=== PATIENT | female | born 2000 | race Native Hawaiian/Other Pacific Islander ===

== ENCOUNTER 2018-10-21 18:34 | Emergency (ER) | payer MEDICAID ==
[2018-10-21 18:51] VITALS: BP 118/74
--- NOTE | 2018-10-21 18:52 | Emergency Department Report ---
Blank Doc - Documentation Documentation: 17 y o female presents with sob and chest pain constant that began last night PMH: none
[2018-10-21] MEDS ORDERED: IBUPROFEN PO ONE (19:48)
[2018-10-21 19:54] LABS: Basophils % (Auto) 0.6 % (0.0-1.8); Eosinophils # (Auto) 0.3 K/mm3 (0.0-0.4); Eosinophils % (Auto) 3.9 % (0.0-4.3); Hemoglobin 12.6 gm/dl (10.1-14.3); Lymphocytes # (Auto) 2.3 K/mm3 (1.2-5.4); Lymphocytes % (Auto) 32.2 % (13.4-35.0); Mean Corpuscular HGB Conc 35 % (30-34); Mean Corpuscular Volume 94 fl (79-97); Monocytes # (Auto) 0.6 K/mm3 (0.0-0.8); Platelet Count 285 K/mm3 (140-440); Red Blood Count 3.83 M/mm3 (3.65-5.03); Red Cell Distribution Width 12.2 % (13.2-15.2)
[2018-10-21 20:07] LABS: BUN/Creatinine Ratio 20; Blood Urea Nitrogen 12 mg/dL (7-17); Calcium 8.9 mg/dL (8.4-10.2); Hemolysis Index 6
--- NOTE | 2018-10-21 21:19 | Emergency Department Report ---
ED Chest Pain HPI - General Chief Complaint: Chest Pain Stated Complaint: CHEST/BACK PAIN Time Seen by Provider: 10/21/18 18:49 Source: patient Mode of arrival: Ambulatory Limitations: No Limitations - History of Present Illness Initial Comments: Patient 17-year-old female who presents with chest pain shortness of breath onset last night pain assessment by movement palpation and deep inspiration pain is relieved by rest pain described as aching sharp there is no radiation there is no nausea vomiting no diaphoresis no dizziness no lightheade dness patient denies history of asthma or bronchitis there is no productive cough no wheezing, pt is deaf reads lips, uses adult sister for manager sales at bedside MD Complaint: chest pain Onset/Timin -: days(s) Pain Location: left chest (left lateral ) Pain Radiation: none Severity: moderate Severity scale (0 -10): 6 Consistency: intermittent Improves With: rest Worsens With: inspiration, palpation, movement re: denies: nausea, vomting, diaphoresis, dyspnea, sense of impending doom Other Symptoms: denies: cough, fever, syncope, rash, acid taste in mouth, leg swelling, palpitations, burping Treatments Prior to Arrival: none Aspirin use within the Past 7 Days: (0) No - Related Data On Oral Contraceptives: No Previous Rx's Medication Instructions Recorded Last Taken Type ALBUTEROL Inhaler (OR & NICU) 2 puff IH QID PRN #1 inhalation 10/21/18 Unknown Rx [ProAir HFA Inhaler] Ibuprofen [Motrin 800 MG tab] 800 mg PO Q8HR PRN #30 tablet 10/21/18 Unknown Rx Allergies Allergy/AdvReac Type Severity Reaction Status Date / Time Penicillins Allergy Hives Verified 10/21/18 18:39 Heart Score - HEART Score History: Slightly suspicious EKG: Normal Age: < 45 Risk factors: No known risk factors Troponin: < normal limit HEART Score: 0 ED Review of Systems ROS: Stated complaint: CHEST/BACK PAIN Other details as noted in HPI Constitutional: denies: chills, fever, malaise Eyes: denies: eye pain, eye discharge, vision change ENT: denies: ear pain, throat pain, congestion Respiratory: denies: cough, shortness of breath, wheezing Cardiovascular: chest pain. denies: palpitations, dyspnea on exertion, orthopnea, edema, syncope, paroxysmal nocturnal dyspnea Endocrine: no symptoms reported Gastrointestinal: denies: abdominal pain, nausea, vomiting, diarrhea, constipation, melena, hematochezia Genitourinary: denies: urgency, dysuria, frequency, hematuria, discharge Musculoskeletal: denies: back pain, joint swelling, arthralgia, myalgia Skin: denies: rash, lesions Neurological: as per HPI Psychiatric: denies: anxiety, depression Hematological/Lymphatic: denies: easy bleeding, easy bruising ED Past Medical Hx - Past Medical History Previous Medical History?: No - Surgical History Past Surgical History?: No - Social History Smoking Status: Never Smoker Substance Use Type: None - Medications Home Medications: Home Medications Medication Instructions Recorded Confirmed Last Taken Type ALBUTEROL Inhaler (OR & NICU) 2 puff IH QID PRN #1 inhalation 10/21/18 Unknown Rx [ProAir HFA Inhaler] Ibuprofen [Motrin 800 MG tab] 800 mg PO Q8HR PRN #30 tablet 10/21/18 Unknown Rx ED Physical Exam - General Limitations: No Limitations General appearance: alert, in no apparent distress - Head Head exam: Present: atraumatic, normocephalic - Eye Eye exam: Present: normal appearance, PERRL, EOMI Pupils: Present: normal accommodation - ENT ENT exam: Present: mucous membranes moist. Absent: normal orophraynx, TM's normal bilaterally, normal external ear exam - Neck Neck exam: Present: normal inspection, full ROM. Absent: tenderness, meningismus, lymphadenopathy, thyromegaly - Respiratory Respiratory exam: Present: normal lung sounds bilaterally, chest wall tenderness (left lateral chest wall pain). Absent: respiratory distress, wheezes, rales, rhonchi, stridor, accessory muscle use, decreased breath sounds, prolonged e xpiratory - Cardiovascular Cardiovascular Exam: Present: regular rate, normal rhythm, normal heart sounds - GI/Abdominal GI/Abdominal exam: Present: soft, normal bowel sounds. Absent: distended, tenderness, guarding, rebound, rigid, bruit, hernia - Rectal Rectal exam: Present: deferred - Extremities Exam Extremities exam: Present: normal inspection, full ROM, normal capillary refill. Absent: tenderness, pedal edema, joint swelling, calf tenderness - Back Exam Back exam: Present: normal inspection, full ROM, tenderness. Absent: CVA tenderness (R), CVA tenderness (L), muscle spasm, paraspinal tenderness, rash noted - Neurological Exam Neurological exam: Present: alert, oriented X3, CN II-XII intact, normal gait, motor sensory deficit, reflexes normal - Psychiatric Psychiatric exam: Present: normal affect, normal mood - Skin Skin exam: Present: warm, dry, intact, normal color. Absent: rash ED Course Vital Signs 10/21/18 10/21/18 18:49 20:24 Temperature 98.2 F Pulse Rate 76 Respiratory 16 16 Rate Blood Pressure 118/74 O2 Sat by Pulse 98 Oximetry JERMAIN score - Jermain Score Age > 65: (0) No Aspirin use within the Past 7 Days: (0) No 3 or more CAD Risk Factors: (0) No 2 or more Angina events in past 24 hrs: (0) No Known CAD with more than 50% Stenosis: (0) No Elevated Cardiac Markers: (0) No ST Deviation Greater than 0.5mm: (0) No JERMAIN Score: 0 ED Medical Decision Making - Lab Data Result diagrams: 10/21/18 19:36 10/21/18 19:36 Labs 10/21/18 10/21/18 10/21/18 19:36 19:36 19:36 WBC 7.2 RBC 3.83 Hgb 12.6 Hct 36.0 MCV 94 MCH 33 H MCHC 35 H RDW 12.2 L Plt Count 285 Lymph % (Auto) 32.2 [place] % (Auto) 8.0 H Eos % (Auto) 3.9 Baso % (Auto) 0.6 Lymph # 2.3 [place] # 0.6 Eos # 0.3 Baso # 0.0 Seg Neutrophils % 55.3 Seg Neutrophils # 4.0 Sodium 136 L Potassium 3.7 Chloride 102.5 Carbon Dioxide 22 Anion Gap 15 BUN 12 Creatinine 0.6 L Estimated GFR > 60 BUN/Creatinine Ratio 20 Glucose 96 Calcium 8.9 Troponin T < 0.010 HCG, Qual Negative - EKG Data When compared to previous EKG there are: other (no previous ekg performed ) Interpretation: normal EKG (ekg interp by ed attending NSR no ST Elevated [place] ) - Radiology Data Radiology results: report reviewed, image reviewed Patient: JUICE FARMER MR#: [id number] : 2000 Acct:[id number] Age/Sex: 17 / F ADM Date: 10/21/18 Loc: ED Attending Dr: Ordering Physician: ABI MENENDEZ Date of Service: 10/21/18 Procedure(s): XR chest routine 2V Accession Number(s): [id number] cc: ABI MENENDEZ Fluoro Time In Minutes: PROCEDURE: XR CHEST ROUTINE 2V TECHNIQUE: PA and lateral chest radiographs were obtained. HISTORY: Chest Pain COMPARISONS: None. FINDINGS: Heart: Normal. Mediastinum/Vessels: Normal. Lungs/Pleural space: Normal. Bony thorax: No acute osseous abnormality. IMPRESSION: Normal examination. This document is electronically signed by Greg Farley MD., October 21 2018 10 :14:24 PM ET Transcribed By: [facility] Dictated By: JAKE FARLEY MD Electronically Authenticated By: JAKE FARLEY MD Signed Date/Time: 10/21/182215 DD/ 33 TD/TT: 10/21/182034 - Medical Decision Making cxr nromal, plan ibuprofen prn, alubterol,follow up with pcp in 2 days return to ed if symptoms worsen, pt verbalized agreement and understanding of same. Critical care attestation.: If time is entered above; I have spent that time in minutes in the direct care of this critically ill patient, excluding procedure time. ED Disposition Clinical Impression: Chest wall pain Disposition: -01 TO HOME OR SELFCARE Is pt being admited?: No Does the pt Need Aspirin: No Condition: Stable Instructions: Costochondritis (ED) Prescriptions: Ibuprofen [Motrin 800 MG tab] 800 mg PO Q8HR PRN #30 tablet PRN Reason: pain ALBUTEROL Inhaler (OR & NICU) [ProAir HFA Inhaler] 2 puff IH QID PRN #1 inhalation PRN Reason: Shortness Of Breath Referrals: [facility] [Provider Group] - 3-5 Days Forms: Work/School Release Form(ED) Time of Disposition: 22:48
--- NOTE | 2018-10-21 22:16 | XRay Report ---
PROCEDURE: XR CHEST ROUTINE 2V TECHNIQUE: PA and lateral chest radiographs were obtained. HISTORY: Chest Pain COMPARISONS: None. FINDINGS: Heart: Normal. Mediastinum/Vessels: Normal. Lungs/Pleural space: Normal. Bony thorax: No acute osseous abnormality. IMPRESSION: Normal examination. This document is electronically signed by Greg English MD., October 21 2018 10:14:24 PM ET
== END 2018-10-21 22:52 | disposition home or self-care (01) ==
LOC: ED 18:34
DX: R07.89 Other chest pain (principal); Z88.0 Allergy status to penicillin; Z79.1 Long term (current) use of non-steroidal anti-inflammatories (NSAID)
CPT/HCPCS: 36415; 71046; 80048; 84484; 84703; 85025; 93005; 93010; 99284

== ENCOUNTER 2020-02-08 19:35 | Emergency (ER) | payer SELFPAY ==
[2020-02-08 21:07] LABS: Basophils # (Auto) 0.1 K/mm3 (0.0-0.1); Basophils % (Auto) 0.9 % (0.0-1.8); Eosinophils # (Auto) 0.2 K/mm3 (0.0-0.4); Eosinophils % (Auto) 2.6 % (0.0-4.3); Hematocrit 36.6 % (30.3-42.9); Hemoglobin 12.9 gm/dl (10.1-14.3); Lymphocytes # (Auto) 2.3 K/mm3 (1.2-5.4); Lymphocytes % (Auto) 29.3 % (13.4-35.0); Mean Corpuscular HGB Conc 35 % (30-34); Mean Corpuscular Volume 90 fl (79-97); Monocytes # (Auto) 0.4 K/mm3 (0.0-0.8); Platelet Count 366 K/mm3 (140-440); Red Blood Count 4.07 M/mm3 (3.65-5.03)
[2020-02-08 21:30] LABS: Alanine Aminotransferase 35 units/L (7-56); Albumin 4.3 g/dL (3.9-5); BUN/Creatinine Ratio 9; Blood Urea Nitrogen 6 mg/dL (7-17); Calcium 9.5 mg/dL (8.4-10.2); Hemolysis Index 9
[2020-02-08 21:37] LABS: Bilirubin,Urine NEG (Negative); Blood,Urine SM (Negative); Color,Urine Yellow (Yellow); Mucus,Urine FEW /HPF; Protein,Urine <15 mg/dL mg/dL (Negative); Urobilinogen,Urine < 2.0 mg/dL (<2.0)
[2020-02-09] MEDS ORDERED: ONDANSETRON 4 MG ODT TAB PO ONE (00:11)
[2020-02-09] MEDS ORDERED: IBUPROFEN 800 MG TAB PO ONE (00:11)
[2020-02-09] MEDS ORDERED: DICYCLOMINE 20 MG TAB PO ONE (00:11)
--- NOTE | 2020-02-09 00:36 | Emergency Department Report ---
ED Abdominal Pain HPI - General Chief Complaint: Abdominal Pain Stated Complaint: LOWER ABDOMINAL PAIN Time Seen by Provider: 02/09/20 00:09 Source: patient Mode of arrival: Ambulatory Limitations: No Limitations - History of Present Illness Initial Comments: Pt is a 19 y/o female who presents for bilat lower abdominal pain x 3 days, worse on left side. pt denies fever or chills, no n/v, no back pain, feels pressure, she denies dysuria frequency urgency or discharge. There is no vaginal bleeding , LMP 4 months ago, pt is tolerating po intake. MD Complaint: abdominal pain Onset/Timin -: days(s) Location: LLQ, RLQ Radiation: LLQ Migration to: LLQ Severity: moderate Severity scale (0 -10): 4 Quality: cramping Consistency: constant Improves With: nothing Worsens With: movement Associated Symptoms: constipation. denies: nausea, vomiting, diarrhea, fever, chills, dysuria, hematemesis, melena, hematuria - Related Data LMP (females 10-50): other (5 months) Previous Rx's Medication Instructions Recorded Last Taken Type Albuterol Mdi (or & Nicu Only) 2 puff IH QID PRN #1 inhalation 10/21/18 Unknown Rx [ProAir HFA Inhaler] Ibuprofen [Motrin 800 MG tab] 800 mg PO Q8HR PRN #30 tablet 10/21/18 Unknown Rx Dicyclomine [Bentyl] 10 mg PO QID PRN #15 capsule 02/09/20 Unknown Rx Ibuprofen [Motrin 800 MG tab] 800 mg PO Q8HR PRN #30 tablet 02/09/20 Unknown Rx polyethylene glycoL 3350 [Miralax 17 gm PO BID PRN #14 packet 02/09/20 Unknown Rx 3350] Allergies Allergy/AdvReac Type Severity Reaction Status Date / Time Penicillins Allergy Hives Verified 10/21/18 18:39 ED Review of Systems ROS: Stated complaint: LOWER ABDOMINAL PAIN Other details as noted in HPI Constitutional: denies: chills, fever Eyes: denies: eye pain, eye discharge, vision change ENT: denies: ear pain, throat pain Respiratory: denies: cough, shortness of breath, wheezing Cardiovascular: denies: chest pain, palpitations Endocrine: no symptoms reported Gastrointestinal: abdominal pain, constipation. denies: nausea, vomiting, diarrhea Genitourinary: denies: urgency, dysuria, discharge Musculoskeletal: denies: back pain, joint swelling, arthralgia Skin: denies: rash, lesions Neurological: denies: headache, weakness, paresthesias Psychiatric: denies: anxiety, depression Hematological/Lymphatic: denies: easy bleeding, easy bruising ED Past Medical Hx - Past Medical History Previous Medical History?: No - Surgical History Past Surgical History?: No - Social History Smoking Status: Never Smoker Substance Use Type: None - Medications Home Medications: Home Medications Medication Instructions Recorded Confirmed Last Taken Type Albuterol Mdi (or & Nicu Only) 2 puff IH QID PRN #1 inhalation 10/21/18 Unknown Rx [ProAir HFA Inhaler] Ibuprofen [Motrin 800 MG tab] 800 mg PO Q8HR PRN #30 tablet 10/21/18 Unknown Rx Dicyclomine [Bentyl] 10 mg PO QID PRN #15 capsule 02/09/20 Unknown Rx Ibuprofen [Motrin 800 MG tab] 800 mg PO Q8HR PRN #30 tablet 02/09/20 Unknown Rx polyethylene glycoL 3350 [Miralax 17 gm PO BID PRN #14 packet 02/09/20 Unknown Rx 3350] ED Physical Exam - General Limitations: No Limitations General appearance: alert, in no apparent distress - Head Head exam: Present: atraumatic, normocephalic - Eye Eye exam: Present: normal appearance, PERRL, EOMI Pupils: Present: normal accommodation - ENT ENT exam: Present: mucous membranes moist - Neck Neck exam: Present: normal inspection - Respiratory Respiratory exam: Present: normal lung sounds bilaterally. Absent: respiratory distress, wheezes, stridor, chest wall tenderness - Cardiovascular Cardiovascular Exam: Present: regular rate, normal rhythm, normal heart sounds. Absent: systolic murmur, diastolic murmur, rubs, gallop - GI/Abdominal GI/Abdominal exam: Present: soft, tenderness (LLQ ), normal bowel sounds. Absent: distended, guarding, rebound, rigid, bruit, hernia - Rectal Rectal exam: Present: deferred - Extremities Exam Extremities exam: Present: normal inspection - Back Exam Back exam: Present: normal inspection, full ROM. Absent: CVA tenderness (R), CVA tenderness (L), vertebral tenderness, rash noted - Neurological Exam Neurological exam: Present: alert, oriented X3, CN II-XII intact, normal gait, reflexes normal. Absent: motor sensory deficit - Expanded Neurological Exam Expanded Patient oriented to: Present: person, place, time Speech: Present: fluid speech Cerebellar function: Finger to Nose: Normal, Heel to Velásquez: Normal, Romberg: Normal Motor strength exam: RUE: 5, LUE: 5, RLE: 5, LLE: 5 Best Eye Response ([place]): (4) open spontaneously Best Motor Response ([place]): (6) obeys commands Best Verbal Response (Angie): (5) oriented [place] Total: 15 - Psychiatric Psychiatric exam: Present: normal affect, normal mood - Skin Skin exam: Present: warm, dry, intact, normal color. Absent: rash ED Course Vital Signs 02/08/20 02/09/20 02/09/20 20:07 00:40 00:46 Temperature 98.6 F 98.1 F Pulse Rate 74 71 Respiratory 20 20 18 Rate Blood Pressure 130/82 115/72 O2 Sat by Pulse 86 98 Oximetry ED Medical Decision Making - Lab Data Result diagrams: 02/08/20 20:52 02/08/20 20:52 Labs 02/08/20 02/08/20 02/08/20 20:52 20:52 20:52 WBC 8.0 RBC 4.07 Hgb 12.9 Hct 36.6 MCV 90 MCH 32 MCHC 35 H RDW 13.0 L Plt Count 366 Lymph % (Auto) 29.3 [place] % (Auto) 5.0 Eos % (Auto) 2.6 Baso % (Auto) 0.9 Lymph # (Auto) 2.3 [place] # (Auto) 0.4 Eos # (Auto) 0.2 Baso # (Auto) 0.1 Seg Neutrophils % 62.2 Seg Neutrophils # 4.9 Sodium 139 Potassium 3.9 Chloride 101.8 Carbon Dioxide 22 Anion Gap 19 BUN 6 L Creatinine 0.7 Estimated GFR > 60 BUN/Creatinine Ratio 9 Glucose 127 H Calcium 9.5 Total Bilirubin 0.60 AST 24 ALT 35 Alkaline Phosphatase 59 Total Protein 7.9 Albumin 4.3 Albumin/Globulin Ratio 1.2 HCG, Qual Negative Urine Color Urine Turbidity Urine pH Ur Specific [place] Urine Protein Urine Glucose (UA) Urine Ketones Urine Blood Urine Nitrite Urine Bilirubin Urine Urobilinogen Ur Leukocyte Esterase Urine WBC (Auto) Urine RBC (Auto) U Epithel Cells (Auto) Urine Mucus 02/08/20 21:00 WBC RBC Hgb Hct MCV MCH MCHC RDW Plt Count Lymph % (Auto) [place] % (Auto) Eos % (Auto) Baso % (Auto) Lymph # (Auto) [place] # (Auto) Eos # (Auto) Baso # (Auto) Seg Neutrophils % Seg Neutrophils # Sodium Potassium Chloride Carbon Dioxide Anion Gap BUN Creatinine Estimated GFR BUN/Creatinine Ratio Glucose Calcium Total Bilirubin AST ALT Alkaline Phosphatase Total Protein Albumin Albumin/Globulin Ratio HCG, Qual Urine Color Yellow Urine Turbidity Clear Urine pH 5.0 Ur Specific [place] 1.017 Urine Protein <15 mg/dl Urine Glucose (UA) Neg Urine Ketones Neg Urine Blood Sm Urine Nitrite Neg Urine Bilirubin Neg Urine Urobilinogen < 2.0 Ur Leukocyte Esterase Neg Urine WBC (Auto) 1.0 Urine RBC (Auto) 2.0 U Epithel Cells (Auto) 1.0 Urine Mucus Few - Radiology Data Radiology results: report reviewed, image reviewed Findings Reporting MD: Barrington Baker Dictation Time: February 08, 2020 23:47 Marketing Database Coordinator: Not available Data Entry Associate Date: SUPINE ABDOMEN INDICATION: Abdominal pain Constipation. COMPARISON: No relevant prior imaging study available. FINDINGS: No dilated loops of small bowel. No free air on supine imaging. No abnormal calcifications are seen. There is moderate fecal material in the proximal third of the colon. More distal colon is relatively compressed and unremarkable. No significant constipation. IMPRESSION: 1. No acute findings. Signer Name: Barrington Baker MD Signed: 02/08/2020 11:47 PM Workstation Name: [id number] - Medical Decision Making kub: moderat fecal loading proximal colon, ua : normal, cbc: normal, cmp: normal. pain is improved with medications given in ed, plan: Dx Constipation, dc to home with rx: miralax, bentyl, ibuprofen, pt and family member verbalized agreement and understanding of same. pt dc'd to home in stable condition and tolerating po intake at this time. Critical care attestation.: If time is entered above; I have spent that time in minutes in the direct care of this critically ill patient, excluding procedure time. ED Disposition Clinical Impression: Constipation Qualifiers: Constipation type: unspecified constipation type Qualified Code(s): K59.00 - Constipation, unspecified Disposition: DC-01 TO HOME OR SELFCARE Is pt being admited?: No Does the pt Need Aspirin: No Condition: Stable Instructions: Constipation (ED), High Fiber Diet (ED) Prescriptions: Dicyclomine [Bentyl] 10 mg PO QID PRN #15 capsule PRN Reason: Abdominal Spasm polyethylene glycoL 3350 [Miralax 3350] 17 gm PO BID PRN #14 packet PRN Reason: Constipation Ibuprofen [Motrin 800 MG tab] 800 mg PO Q8HR PRN #30 tablet PRN Reason: Pain Referrals: DARNELL BEAVER MD [Staff Physician] - 3-5 Days Forms: Work/School Release Form(ED) Time of Disposition: 01:26
--- NOTE | 2020-02-09 00:52 | XRay Report ---
SUPINE ABDOMEN INDICATION: Abdominal pain Constipation. COMPARISON: No relevant prior imaging study available. FINDINGS: No dilated loops of small bowel. No free air on supine imaging. No abnormal calcifications are seen. There is moderate fecal material in the proximal third of the colon. More distal colon is relatively compressed and unremarkable. No significant constipation. IMPRESSION: 1. No acute findings. Signer Name: Barrington Baker MD Signed: 02/09/2020 12:47 AM Workstation Name: [id number]
[2020-02-09 01:03] VITALS: BP 115/72
== END 2020-02-09 02:32 | disposition home or self-care (01) ==
LOC: ED 19:35
DX: R10.31 Right lower quadrant pain (principal); R10.32 Left lower quadrant pain; K59.00 Constipation, unspecified; Z88.0 Allergy status to penicillin
CPT/HCPCS: 36415; 74018; 80053; 81001; 84703; 85025; 99283; Q0162